=== PATIENT | male | born 2000 | race Caucasian/White ===

== ENCOUNTER 2024-06-07 17:52 | Emergency (ER) | payer OTHER ==
[2024-06-07 18:26] VITALS: BP 114/59; PULSE 58; RESP 18; TEMP 98.1; BMI 25.7
[2024-06-07 18:30] LABS: BASO % 0.6 % (0-2.0); EOS % 1.9 % (0-4.5); HEMATOCRIT 39.5 % (35.4-49); HEMOGLOBIN 13.5 GM/dL (11.7-16.9); LYMPH % 45.1 % (8-40); MCH 29.5 pg (25.7-33.7); MCHC 34.2 g/dl (32.0-35.9); MEAN CELL VOLUME 86.3 fl (80-96); MONO % 6.8 % (3.8-10.2); NEUT % 45.6 % (42.8-82.8); PLATELET COUNT 177 10^3/uL (134-434); RBC 4.58 M/mm3 (4.00-5.60); RDW 13.6 % (11.9-15.9); WHITE BLOOD COUNT 5.3 K/mm3 (4.0-10.0)
[2024-06-07 18:44] LABS: POTASSIUM 3.8 mmol/L (3.5-5.1)
[2024-06-07 18:46] LABS: CALCIUM 9.1 mg/dL (8.5-10.1)
[2024-06-07 18:47] LABS: ALBUMIN 4.2 g/dl (3.4-5.0); BLOOD UREA NITROGEN 21.3 mg/dL (7-18)
[2024-06-07 18:50] LABS: CREATININE 1.1 mg/dL (0.55-1.3)
[2024-06-07 18:52] LABS: BILIRUBIN,TOTAL 0.6 mg/dL (0.2-1); TOT PROT 6.9 g/dl (6.4-8.2)
[2024-06-07 19:35] LABS: HIV INTERPRETATION NEGATIVE (NEGATIVE)
== END 2024-06-07 18:49 | disposition home or self-care (01) ==
LOC: JER 17:52 → JERFT 17:52
DX: S61.032A Puncture wound without foreign body of left thumb without damage to nail, initial encounter (principal); W46.0XXA Contact with hypodermic needle, initial encounter
CPT/HCPCS: 36415; 80053; 85025; 86704; 86803; 87340; 87389; 87517; 99283-25